=== PATIENT | male | born 1950 | race Caucasian/White ===

== ENCOUNTER 2025-03-12 11:28 | Outpatient (CLI) | payer MEDICARE, MEDICAID, SELFPAY | END 2025-03-12 11:29 | disposition home or self-care (01) | LOC: AMB 04-06 07:23 | PROVIDERS: Visit Provider Internal Medicine | DX: R11.2 Nausea with vomiting, unspecified (principal); E11.649 Type 2 diabetes mellitus with hypoglycemia without coma | CPT/HCPCS: A0425; A0427 ==

== ENCOUNTER 2025-04-25 00:01 | Outpatient (CLI) | payer MEDICARE, MEDICAID, SELFPAY | END 2025-04-25 00:02 | disposition home or self-care (01) | PROVIDERS: Visit Provider Family Medicine | DX: S01.01XA Laceration without foreign body of scalp, initial encounter (principal); W19.XXXA Unspecified fall, initial encounter; Y92.129 Unspecified place in nursing home as the place of occurrence of the external cause | CPT/HCPCS: A0425; A0427 ==